=== PATIENT | female | born 1935 | race American Indian/Alaskan Native ===

== ENCOUNTER 2017-02-27 22:30 | Emergency (ER) | payer OTHER ==
[2017-02-27 23:30] LABS: Hematocrit 37.9 % (30.3-42.9); Hemoglobin 12.4 gm/dl (10.1-14.3); Mean Corpuscular HGB Conc 33 % (30-34); Mean Corpuscular Hemoglobin 31 pg (28-32); Mean Corpuscular Volume 93 fl (79-97); Platelet Count 184 K/mm3 (140-440); Red Blood Count 4.06 M/mm3 (3.65-5.03); White Blood Count 3.2 K/mm3 (4.5-11.0)
[2017-02-27] MEDS ORDERED: KEPPRA 1,000 MG/NS 0.75% 100ML 1,000 MG/100 ML BAG IV ONE (23:34)
[2017-02-27 23:53] LABS: BUN/Creatinine Ratio 26.15; Calcium 8.7 mg/dL (8.4-10.2); Chloride 108.2 mmol/L (98-107); Potassium 4.3 mmol/L (3.6-5.0)
--- NOTE | 2017-02-28 00:32 | Emergency Department Report ---
ED Seizure HPI - General Chief Complaint: Seizure Stated Complaint: SIEZURE/COLD SKIN Time Seen by Provider: 02/27/17 23:33 Source: patient Mode of arrival: Wheelchair Limitations: No Limitations - History of Present Illness Initial Comments: 81-year-old female the past medical history seizure disorder, hypertension, and CHF presents to the hospital complains of seizures tonight. Seizure was witnessed by family members at the bedside. Patient had no preceding symptoms. Episode of stiffening and shaking lasting for 3 minutes followed by post ictal state. Patient is now alert and oriented at her baseline. No reports of fall or head injury. Family noticed some mild blood coming from the mouth. Patient is asymptomatic currently and denies any pain, weakness, or numbness. Patient has had a seizure within the last 2 months. [place]. She is not currently on any seizure medication. - Related Data Home Medications Medication Instructions Recorded Confirmed Last Taken Furosemide [Lasix TAB] 40 mg PO DAILY 02/28/17 02/28/17 Unknown Previous Rx's Medication Instructions Recorded Last Taken Type Spironolactone [Aldactone] 25 mg PO QDAY #30 tablet 05/23/15 04/15/16 Rx Carvedilol [Coreg] 6.25 mg PO BID #60 tablet 02/13/16 04/15/16 Rx Lisinopril [Zestril TAB] 5 mg PO QDAY #30 tablet 02/13/16 04/15/16 Rx levETIRAcetam [Keppra TAB] 500 mg PO BID #60 tablet 02/28/17 Unknown Rx Allergies Allergy/AdvReac Type Severity Reaction Status Date / Time No Known Allergies Allergy Unverified 05/15/15 19:09 ED Review of Systems ROS: Stated complaint: SIEZURE/COLD SKIN Other details as noted in HPI Comment: All other systems reviewed and negative Other: Constitutional: No fevers chills Eyes: No eye pain visual changes ENT: Per HPI Neck: Denies pain Respiratory: Denies cough wheezing shortness of breath Cardiovascular: Denies chest pain, palpitations, syncope GI: Denies abdominal pain, nausea, vomiting, diarrhea : Denies dysuria Musculoskeletal: Denies back pain Skin: Denies rash, lesions, erythema Neurologic: Denies headache, numbness, weakness Psychiatric: Denies suicidal ideation, hallucinations ED Past Medical Hx - Past Medical History Hx Hypertension: Yes Hx Congestive Heart Failure: Yes Hx Arthritis: Yes Hx Seizures: Yes Additional medical history: UNKNOWN - Surgical History Past Surgical History?: No - Social History Smoking Status: Never Smoker Substance Use Type: None - Medications Home Medications: Home Medications Medication Instructions Recorded Confirmed Last Taken Type Spironolactone [Aldactone] 25 mg PO QDAY #30 tablet 05/23/15 02/28/17 04/15/16 Rx Carvedilol [Coreg] 6.25 mg PO BID #60 tablet 02/13/16 02/28/17 04/15/16 Rx Lisinopril [Zestril TAB] 5 mg PO QDAY #30 tablet 02/13/16 02/28/17 04/15/16 Rx Furosemide [Lasix TAB] 40 mg PO DAILY 02/28/17 02/28/17 Unknown History levETIRAcetam [Keppra TAB] 500 mg PO BID #60 tablet 02/28/17 Unknown Rx ED Physical Exam - General Limitations: No Limitations - Other Other exam information: General: No limitations, patient is alert in no acute distress Head exam: Atraumatic, normocephalic Eyes exam: Normal appearance, pupils equal reactive to light, extraocular movements intact ENT: Moist mucous membrane, normal oropharynx. Patient has upper teeth, no lower teeth. No signs of lip or tongue laceration. No blood in the mouth Neck exam: Normal inspection, full range of motion, no meningismus nontender Respiratory exam: Clear to auscultation bilateral, no wheezes, rales, crackles Cardiovascular: Normal rate and rhythm, normal heart sounds Abdomen: Soft, nondistended, and nontender, with normal bowel sounds, no rebound, or guarding Extremity: Full range of motion normal inspection no deformity Back: Normal Inspection, full range of motion, no tenderness Neurologic: Alert, oriented x3, cranial nerves intact, no motor or sensory deficit Psychiatric: normal affect, normal mood Skin: Warm, dry, intact ED Course Vital Signs 02/27/17 02/28/17 02/28/17 22:31 00:00 00:15 Temperature 97.8 F Pulse Rate 59 L 60 Respiratory 18 12 11 L Rate Blood Pressure 116/72 122/70 O2 Sat by Pulse 100 98 98 Oximetry - Reevaluation(s) Reevaluation #1: 02/28/17 00:31 Doretha provided ED Medical Decision Making - Lab Data Result diagrams: 02/27/17 22:51 02/27/17 22:51 Lab Results 02/27/17 02/27/17 02/27/17 Range/Units 22:47 22:51 22:51 WBC 3.2 L (4.5-11.0) K/mm3 RBC 4.06 (3.65-5.03) M/mm3 Hgb 12.4 (10.1-14.3) gm/dl Hct 37.9 (30.3-42.9) % MCV 93 (79-97) fl MCH 31 (28-32) pg MCHC 33 (30-34) % RDW 14.0 (13.2-15.2) % Plt Count 184 (140-440) K/mm3 Sodium 146 H (137-145) mmol/L Potassium 4.3 (3.6-5.0) mmol/L Chloride 108.2 H (98-107) mmol/L Carbon Dioxide 22 (22-30) mmol/L Anion Gap 20 mmol/L BUN 34 H (7-17) mg/dL Creatinine 1.3 H (0.7-1.2) mg/dL Estimated GFR 47 ml/min BUN/Creatinine Ratio 26.15 % Glucose 165 H (65-100) mg/dL POC Glucose 176 H (70-105) Calcium 8.7 (8.4-10.2) mg/dL Magnesium (1.7-2.3) mg/dL 02/27/17 Range/Units 22:51 WBC (4.5-11.0) K/mm3 RBC (3.65-5.03) M/mm3 Hgb (10.1-14.3) gm/dl Hct (30.3-42.9) % MCV (79-97) fl MCH (28-32) pg MCHC (30-34) % RDW (13.2-15.2) % Plt Count (140-440) K/mm3 Sodium (137-145) mmol/L Potassium (3.6-5.0) mmol/L Chloride (98-107) mmol/L Carbon Dioxide (22-30) mmol/L Anion Gap mmol/L BUN (7-17) mg/dL Creatinine (0.7-1.2) mg/dL Estimated GFR ml/min BUN/Creatinine Ratio % Glucose (65-100) mg/dL POC Glucose (70-105) Calcium (8.4-10.2) mg/dL Magnesium 2.00 (1.7-2.3) mg/dL - Medical Decision Making Patient has a history of seizures, no head injury, no pain or neurologic deficits therefore head CT had not obtain at this time. Patient is not currently on any seizure medication. Received Keppra and IV. We'll continue Keppra as an outpatient and encourage neurology follow-up - Differential Diagnosis breakthrough seizure, electrolyte abnormality Critical Care Time: No Critical care attestation.: If time is entered above; I have spent that time in minutes in the direct care of this critically ill patient, excluding procedure time. ED Disposition Clinical Impression: Seizure Disposition: [id number] TO HOME OR SELFCARE Is pt being admited?: No Does the pt Need Aspirin: No Condition: Stable Instructions: Recurrent Seizures Adult (ED) Additional Instructions: Follow-up with either neurologist provided or with the neurologist of your choice. Take seizure medication as prescribed. Return if symptoms worsen. Prescriptions: levETIRAcetam [Keppra TAB] 500 mg PO BID #60 tablet Referrals: MINO STONE MD [Staff Physician] - 3-5 Days TRACEY EDWARDS MD [Staff Physician] - 3-5 Days Time of Disposition: 00:58
[2017-02-28 01:10] VITALS: BP 126/79
== END 2017-02-28 01:05 | disposition home or self-care (01) ==
LOC: ED 22:30
DX: G40.909 Epilepsy, unspecified, not intractable, without status epilepticus (principal); M19.90 Unspecified osteoarthritis, unspecified site; R56.9 Unspecified convulsions; I50.9 Heart failure, unspecified; I10 Essential (primary) hypertension; Z91.040 Latex allergy status
CPT/HCPCS: 36415; 80048; 82962; 83735; 85027; 96365; 99284; J1953